=== PATIENT | female | born 2005 | race Caucasian/White ===

== ENCOUNTER 2024-03-25 15:18 | Outpatient (CLI) | payer OTHER | END 2024-03-25 23:59 | disposition critical access hospital (66) | LOC: EMS 15:18 | DX: R07.9 Chest pain, unspecified (principal); R11.0 Nausea; R06.00 Dyspnea, unspecified; R20.2 Paresthesia of skin; R42 Dizziness and giddiness; R51.9 Headache, unspecified; R25.1 Tremor, unspecified | CPT/HCPCS: A0425; A0427 ==

== ENCOUNTER 2024-03-25 15:51 | Emergency (ER) | payer OTHER ==
--- NOTE | 2024-03-25 16:13 | ED Physician Documentation ---
PD HPI CHEST PAIN - Stated complaint Stated Complaint: CP - Chief complaint Chief Complaint: Cardiac - History obtained from History obtained from: Patient, EMS - History of Present Illness Timing - onset: Today Timing - details: Gradual onset Pain level max: 5 Pain level now: 5 Quality: Pressure Location: Substernal Radiation: No: Jaw, Neck, Back, Abdominal, Left upper extremity, Right upper extremity Improved by: Rest, Nothing Worsened by: No: Exertion, Inspiration, Eating, Movement, Palpation, Position Associated symptoms: Shortness of air, Feeling faint / dizzy. No: Nausea, Vomiting, General Weakness, Palpitations, Cough - Additional information Additional information: Patient is a 18-year-old female who presents to the emergency department with chest pain today. She states that it feels like pressure and squeezing in her chest. She states she has had similar symptoms in the past but no cause found. She states started while at work today. Nothing seems to make it better or worse. Has not taken anything for the pain. Patient started having the pain about 2 hours prior to arrival. No cough, congestion, dyspnea. No fevers, chills. No abdominal pain, nausea or vomiting. Patient states that her watch showed that her heart rate spiked today as well. She states went up to 165 bpm. Review of Systems Constitutional: denies: Fever, Chills Respiratory: denies: Cough GI: denies: Vomiting, Diarrhea : denies: Dysuria, Frequency, Hesitancy Skin: denies: Rash Musculoskeletal: denies: Neck pain, Back pain Neurologic: denies: Headache PD PAST MEDICAL HISTORY - Past Medical History Past Medical History: No - Past Surgical History Past Surgical History: No - Present Medications Home Medications: Ambulatory Orders Medication Instructions Recorded Confirmed No Known Home Medications 03/25/24 03/25/24 - Allergies Allergies/Adverse Reactions: Allergies Allergy/AdvReac Type Severity Reaction Status Date / Time No Known Drug Allergies Allergy Verified 03/25/24 16:09 - Living Situation Living Situation: reports: With family Living Arrangement: reports: At home - Social History Does the pt smoke?: No Does the pt drink ETOH?: No Does the pt have substance abuse?: No - Family History Family history: reports: Non contributory PD ED PE NORMAL - Vitals Vital signs reviewed: Yes - General General: Alert and oriented X 3, No acute distress - HEENT HEENT: PERRL, Moist mucous membranes - Neck Neck: Supple, no meningeal sign - Cardiac Cardiac: RRR, No murmur, No gallop, No rub, Strong equal pulses - Respiratory Respiratory: No respiratory distress, Clear bilaterally - Abdomen Abdomen: Soft, Non tender, Non distended - Derm Derm: Warm and dry - Extremities Extremities: No edema, No calf tenderness / cord - Neuro Neuro: Alert and oriented X 3 - Psych Psych: Normal mood, Normal affect Results - Vitals Vitals: Vital Signs - 24 hr 03/25/24 03/25/24 16:09 17:24 Temperature 36.7 C Heart Rate 104 H 82 Respiratory 18 13 Rate Blood Pressure 116/70 115/74 O2 Saturation 100 99 Oxygen O2 Source Room air - EKG (time done) 1637 EKG releavant findings:: EKG personally interpreted by author of this note. Relevant findings are: Rate: Rate (enter#) (81) Rhythm: NSR [place]: Normal Intervals: Normal NV QRS: Normal Ischemia: Normal ST segments - Labs Labs: Laboratory Tests 03/25/24 03/25/24 16:19 16:19 WBC 7.5 RBC 4.51 Hgb 12.7 Hct 40.3 MCV 89.4 MCH 28.2 MCHC 31.5 L RDW 12.5 Plt Count 270 MPV 10.8 Neut # (Auto) 4.4 Lymph # (Auto) 2.5 [place] # (Auto) 0.5 Eos # (Auto) 0.1 Baso # (Auto) 0.1 Absolute Nucleated RBC 0.00 Nucleated RBC % 0.0 Sodium 136 Potassium 3.8 Chloride 105 Carbon Dioxide 25 Anion Gap 6.0 BUN 16 Creatinine 0.7 Estimated GFR (MDRD) 108 Glucose 95 Calcium 9.9 Total Bilirubin 0.4 AST 19 ALT 14 Alkaline Phosphatase 53 Troponin I High Sens < 2.3 L Total Protein 7.2 Albumin 4.5 Globulin 2.7 Albumin/Globulin Ratio 1.7 Lipase 16 - Rads (name of study) cxr Relevant Findings:: Final report received, See rad report PD Medical Decision Making - ED course Complexity details: reviewed results, re-evaluated patient, considered differential (No ST elevation [place], no aortic dissection, no PE, no tension pneumothorax, no aortic aneurysm), d/w patient ED course: No acute findings on EKG, chest x-ray, laboratory testing. Unclear etiology of her symptoms. Pain resolved in the emergency department with a small dose of IV morphine. She states that she feels much better. Does not feel her heart racing. Possible anxiety? Possible arrhythmia? Unclear what the spike of her heart rate was on her watch. Recommend that she have a Holter monitor/Zio patch with her doctor to see if she is having any arrhythmias. No acute findings on telemetry here. Patient continues to be asymptomatic here. Will have her fo llow-up with her doctor for further care. Patient counseled regarding signs and symptoms for which I believe and urgent re-evaluation would be necessary. Patient with good understanding of and agreement to plan and is comfortable going home at this time This document was made in part using voice recognition software. While efforts are made to proofread this document, sound alike and grammatical errors may occur. Departure - Departure Disposition: 01 Home, Self Care Clinical Impression: Atypical chest pain Condition: Good Instructions: ED Chest Pain Atypical Unkn Cause Follow-Up: your,doctor in 1 week [Other] Comments: The cause of your symptoms is unclear today. Your chest x-ray, EKG and laboratory testing including troponin do not show any acute abnormalities. It is recommended that you have a Holter monitor or Zio patch to monitor for any potential cardiac arrhythmias. You were administered a single dose of morphine here today. You are also given Carafate, viscous lidocaine, famotidine and Maalox. Please follow-up with your doctor and base for further care and return if you worsen. Forms: PCP List Discharge Date/Time: 03/25/24 17:31
[2024-03-25 16:24] LABS: BASOPHILS # (AUTO) 0.1 10^3/uL (0.0-0.1); BASOPHILS % (AUTO) 0.9 %; EOSINOPHILS # (AUTO) 0.1 10^3/uL (0.0-0.7); EOSINOPHILS % (AUTO) 1.3 %; HCT - HEMATOCRIT 40.3 % (37.0-47.0); HGB - HEMOGLOBIN 12.7 g/dL (12.0-16.0); LYMPHOCYTES # (AUTO) 2.5 10^3/uL (1.5-3.5); LYMPHOCYTES % (AUTO) 33.1 %; MEAN CORPUSCULAR HEMOGLOBIN 28.2 pg (27.0-31.0); MEAN CORPUSCULAR HGB CONC 31.5 g/dL (32.0-36.0); MEAN CORPUSCULAR VOLUME 89.4 fL (81.0-99.0); MEAN PLATELET VOLUME 10.8 fL (7.9-10.8); MONOCYTES # (AUTO) 0.5 10^3/uL (0.0-1.0); NEUTROPHILS # (AUTO) 4.4 10^3/uL (1.5-6.6); NEUTROPHILS % (AUTO) 58.6 %; PLT - PLATELET COUNT 270 10^3/uL (130-450); RED BLOOD COUNT 4.51 10^6/uL (4.20-5.40); RED CELL DISTRIBUTION WIDTH 12.5 % (12.0-15.0); WHITE BLOOD COUNT 7.5 x10^3/uL (4.8-10.8)
[2024-03-25] MEDS: MAG HYDROX/AL HYDROX/SIMETH 30 ML UDC PO STA (16:25)
[2024-03-25] MEDS: SUCRALFATE 1 GM/10 ML UDC PO STA (16:26)
[2024-03-25] MEDS: LIDOCAINE VISCOUS 2% 15 ML UDC MM STA (16:26)
[2024-03-25] MEDS: FAMOTIDINE 20 MG TABLET PO STA (16:26)
[2024-03-25 16:38] LABS: ALBUMIN 4.5 g/dL (3.2-5.5); ALBUMIN/GLOBULIN RATIO 1.7 (1.0-2.2); ALKALINE PHOSPHATASE 53 IU/L (42-121); ALT ALANINE AMINOTRANSFERASE 14 IU/L (10-60); AST ASPARTATE AMINOTRANSFERASE 19 IU/L (10-42); BILIRUBIN,TOTAL 0.4 mg/dL (0.2-1.0); BUN - BLOOD UREA NITROGEN 16 mg/dL (6-20); CALCIUM 9.9 mg/dL (8.5-10.3); CARBON DIOXIDE - CO2 25 mmol/L (21-32); CHLORIDE 105 mmol/L (101-111); CREATININE 0.7 mg/dL (0.6-1.3); GFR - MDRD 108 (>89); GLUCOSE 95 mg/dL (74-104); LIPASE 16 U/L (11-82); POTASSIUM 3.8 mmol/L (3.5-4.5); SODIUM 136 mmol/L (135-145); TOTAL PROTEIN 7.2 g/dL (6.4-8.9)
--- NOTE | 2024-03-25 16:41 | XRAY Report ---
PROCEDURE: Chest 1V INDICATIONS: Chest Pain TECHNIQUE: One view of the chest was acquired. COMPARISON: None. FINDINGS: Surgical changes and devices: None. Lungs and pleura: No pleural effusions or pneumothorax. Lungs are clear. Mediastinum: Mediastinal contours appear normal. Heart size is normal. Bones and chest wall: No suspicious bony lesions. Overlying soft tissues appear unremarkable. IMPRESSION: No acute cardiopulmonary process. Reviewed by: Erica Wheeler MD on 03/25/2024 4:40 PM PDT Approved by: Erica Wheeler MD on 03/25/2024 4:40 PM PDT Station ID: [id number]
[2024-03-25 16:45] LABS: TROPONIN I HIGH SENSITIVITY < 2.3 ng/L (2.3-14.8)
[2024-03-25] MEDS: MORPHINE 2 MG/ML CARPUJECT IVP STA (16:54)
[2024-03-25 17:24] VITALS: BP 115/74; O2SAT 99
== END 2024-03-25 17:31 | disposition home or self-care (01) ==
LOC: ED 15:51
DX: R07.89 Other chest pain (principal)
CPT/HCPCS: 36415; 71045; 80053; 83690; 84484; 85025; 93005; 96374; 99284; 99285; A9270